=== PATIENT | female | born 1960 | race Caucasian/White ===

== ENCOUNTER 2019-07-03 08:02 | Outpatient (CLI) | payer OTHER ==
[2019-07-03 12:11] LABS: BASOPHILS # (AUTO) 0.1 10^3/uL (0.0-0.1); BASOPHILS % (AUTO) 1.2 %; EOSINOPHILS # (AUTO) 0.2 10^3/uL (0.0-0.7); EOSINOPHILS % (AUTO) 3.3 %; HGB - HEMOGLOBIN 12.8 g/dL (12.0-16.0); LYMPHOCYTES # (AUTO) 2.9 10^3/uL (1.5-3.5); MEAN CORPUSCULAR HEMOGLOBIN 26.3 pg (27.0-31.0); MEAN CORPUSCULAR HGB CONC 31.2 g/dL (32.0-36.0); MEAN CORPUSCULAR VOLUME 84.4 fL (81.0-99.0); MEAN PLATELET VOLUME 10.2 fL (7.9-10.8); MONOCYTES # (AUTO) 0.5 10^3/uL (0.0-1.0); MONOCYTES % (AUTO) 8.4 %; NEUTROPHILS # (AUTO) 2.3 10^3/uL (1.5-6.6); NEUTROPHILS % (AUTO) 38.8 %; PLT - PLATELET COUNT 348 10^3/uL (130-450); RED BLOOD COUNT 4.86 10^6/uL (4.20-5.40); RED CELL DISTRIBUTION WIDTH 13.5 % (12.0-15.0)
[2019-07-03 12:21] LABS: ALBUMIN 4.3 g/dL (3.2-5.5); ALBUMIN/GLOBULIN RATIO 1.4 (1.0-2.2); ALKALINE PHOSPHATASE 33 IU/L (42-121); ALT ALANINE AMINOTRANSFERASE 49 IU/L (10-60); AST ASPARTATE AMINOTRANSFERASE 28 IU/L (10-42); BILIRUBIN,TOTAL 0.5 mg/dL (0.2-1.0); BUN - BLOOD UREA NITROGEN 23 mg/dL (6-20); CALCIUM 9.9 mg/dL (8.5-10.3); CARBON DIOXIDE - CO2 29 mmol/L (21-32); CHLORIDE 101 mmol/L (101-111); CHOL/HDL RATIO 4.2 (<4.4); CHOLESTEROL 233 mg/dL; CREATININE 0.6 mg/dL (0.4-1.0); GLUCOSE 99 mg/dL (70-100); HDL CHOLESTEROL 56 mg/dL; LDL CHOLESTEROL,CALCULATED 151 mg/dL; LDL/HDL RATIO 2.7 (<4.4); SODIUM 136 mmol/L (135-145); TOTAL PROTEIN 7.4 g/dL (6.7-8.2); VLDL CHOLESTEROL 26 mg/dL
== END 2019-07-03 23:59 | disposition home or self-care (01) ==
LOC: LAB.N 08:02
PROVIDERS: ATTEND Family Medicine
DX: I10 Essential (primary) hypertension (principal); E78.5 Hyperlipidemia, unspecified; E03.9 Hypothyroidism, unspecified
CPT/HCPCS: 36415; 80053; 80061; 83721; 84443; 85025

== ENCOUNTER 2020-05-20 08:00 | Outpatient (CLI) | payer OTHER ==
[2020-05-20 13:37] LABS: BASOPHILS # (AUTO) 0.1 10^3/uL (0.0-0.1); BASOPHILS % (AUTO) 1.1 %; EOSINOPHILS # (AUTO) 0.2 10^3/uL (0.0-0.7); EOSINOPHILS % (AUTO) 2.9 %; HGB - HEMOGLOBIN 13.3 g/dL (12.0-16.0); LYMPHOCYTES # (AUTO) 3.7 10^3/uL (1.5-3.5); LYMPHOCYTES % (AUTO) 59.4 %; MEAN CORPUSCULAR HEMOGLOBIN 27.3 pg (27.0-31.0); MEAN CORPUSCULAR HGB CONC 31.3 g/dL (32.0-36.0); MEAN CORPUSCULAR VOLUME 87.1 fL (81.0-99.0); MEAN PLATELET VOLUME 10.3 fL (7.9-10.8); MONOCYTES # (AUTO) 0.5 10^3/uL (0.0-1.0); MONOCYTES % (AUTO) 7.6 %; NEUTROPHILS # (AUTO) 1.8 10^3/uL (1.5-6.6); NEUTROPHILS % (AUTO) 28.8 %; PLT - PLATELET COUNT 352 10^3/uL (130-450); RED BLOOD COUNT 4.88 10^6/uL (4.20-5.40); RED CELL DISTRIBUTION WIDTH 13.5 % (12.0-15.0); WHITE BLOOD COUNT 6.2 x10^3/uL (4.8-10.8)
[2020-05-20 14:24] LABS: ALBUMIN 4.7 g/dL (3.2-5.5); ALBUMIN/GLOBULIN RATIO 1.7 (1.0-2.2); ALKALINE PHOSPHATASE 46 IU/L (42-121); ALT ALANINE AMINOTRANSFERASE 42 IU/L (10-60); AST ASPARTATE AMINOTRANSFERASE 25 IU/L (10-42); BILIRUBIN,TOTAL 0.6 mg/dL (0.2-1.0); BUN - BLOOD UREA NITROGEN 22 mg/dL (6-20); CALCIUM 10.6 mg/dL (8.5-10.3); CARBON DIOXIDE - CO2 28 mmol/L (21-32); CHLORIDE 99 mmol/L (101-111); CHOLESTEROL 255 mg/dL; CREATININE 0.6 mg/dL (0.4-1.0); GLUCOSE 92 mg/dL (70-100); HDL CHOLESTEROL 64 mg/dL; LDL CHOLESTEROL,CALCULATED 166 mg/dL; LDL/HDL RATIO 2.6 (<4.4); TOTAL PROTEIN 7.5 g/dL (6.7-8.2); VLDL CHOLESTEROL 25 mg/dL
== END 2020-05-20 23:59 ==
LOC: LAB.WCP 08:00
PROVIDERS: ATTEND Internal Medicine
DX: E87.6 Hypokalemia (principal); E78.5 Hyperlipidemia, unspecified; E03.9 Hypothyroidism, unspecified
CPT/HCPCS: 36415; 80053; 80061; 83721; 84443; 85025

== ENCOUNTER 2020-08-25 08:00 | Outpatient (CLI) | payer OTHER ==
[2020-08-25 17:02] LABS: FECAL OCCULT BLOOD (FIT) NEGATIVE (NEGATIVE)
== END 2020-08-25 23:59 | disposition home or self-care (01) ==
LOC: LAB.R 08:00
PROVIDERS: ATTEND Internal Medicine
DX: Z12.11 Encounter for screening for malignant neoplasm of colon (principal)
CPT/HCPCS: 82274

== ENCOUNTER 2021-01-04 08:12 | Outpatient (CLI) | payer OTHER ==
--- NOTE | 2021-01-05 15:04 | Mammography Report ---
BILATERAL DIGITAL SCREENING MAMMOGRAM 3D/2D: 01/04/2021 CLINICAL: Baseline exam. Routine screening. No prior exams were available for comparison. There are scattered fibroglandular elements in both br easts. No significant masses, calcifications, or other findings are seen in either breast. IMPRESSION: NEGATIVE There is no mammographic evidence of malignancy. A 1 year screening mammogram is recommended. This exam was interpreted at Station ID: [id number]. NOTE: For mammograms, a report in lay terms will be sent to the patient. Approximately 15% of breast malignancies will not be visualized mammographically. In the management of a palpable breast mass, a negative mammogram must not discourage biopsy of a clinically suspicious lesion. Electronically Signed By: Natalio Garcia M.D., jr/darren:01/04/2021 08:54:16 ACR BI-RADS Category 1: Negative 3341F PARENCHYMAL PATTERN: (A) - The breast(s) demonstrate(s) scattered fibroglandular densities. BI-RADS CATEGORY: (1) - 1 RECOMMENDATION: (ANNUAL) - Recommend routine annual screening mammography. [id number] 1 year screening LATERALITY: (B)
== END 2021-01-04 08:13 | disposition home or self-care (01) ==
LOC: DI 08:12
DX: Z12.31 Encounter for screening mammogram for malignant neoplasm of breast (principal)

== ENCOUNTER 2021-05-27 14:43 | Outpatient (CLI) | payer OTHER ==
--- NOTE | 2021-05-27 16:00 | Ultrasound Report ---
PROCEDURE: Pelvic w/Transvaginal INDICATIONS: ENDOMETRIAL POLYP TECHNIQUE: Real-time scanning was performed of the pelvic organs, with image documentation. Additional endovagi nal scanning was necessary due to incomplete visualization of the adnexal and endometrial structures by transabdominal scanning. COMPARISON: None. FINDINGS: The uterine body measures 3.8 x 6.0 x 6.1 cm. The endometrium is thickened measuring 2 cm in double l andre thickness. Endometrial echogenicity is markedly heterogenous. There is a large hypoechoic tortuo us/serpentine vessel in the posterior aspect of the endometrial stripe. There is also a cystic lesion in the posterior endometrium measuring approximately 7 mm. Right and left ovaries are normal in size. No ovarian or adnexal mass. IMPRESSION: Markedly thickened endometrium with heterogenous endometrial echogenicity/echotexture. This along wit h a hypertrophied endometrial vessel and an endometrial cyst measuring 7 mm raise concern for endomet rial carcinoma. Recommend hysteroscopy and/or endometrial biopsy. Reviewed by: Natalio Garcia MD on 05/27/2021 3:59 PM PST Approved by: Natalio Garcia MD on 05/27/2021 3:59 PM PST Station ID: [id number]
== END 2021-05-27 14:44 | disposition home or self-care (01) ==
LOC: DI 14:43
PROVIDERS: ATTEND Obstetrics & Gynecology
DX: N85.00 Endometrial hyperplasia, unspecified (principal); N85.8 Other specified noninflammatory disorders of uterus

== ENCOUNTER 2021-06-06 08:40 | Outpatient (CLI) | payer OTHER ==
[2021-06-06 09:06] LABS: BASOPHILS # (AUTO) 0.1 10^3/uL (0.0-0.1); BASOPHILS % (AUTO) 1.3 %; EOSINOPHILS # (AUTO) 0.2 10^3/uL (0.0-0.7); EOSINOPHILS % (AUTO) 3.9 %; HCT - HEMATOCRIT 41.7 % (37.0-47.0); HGB - HEMOGLOBIN 13.5 g/dL (12.0-16.0); LYMPHOCYTES # (AUTO) 2.7 10^3/uL (1.5-3.5); LYMPHOCYTES % (AUTO) 50.6 %; MEAN CORPUSCULAR HEMOGLOBIN 27.4 pg (27.0-31.0); MEAN CORPUSCULAR HGB CONC 32.4 g/dL (32.0-36.0); MEAN CORPUSCULAR VOLUME 84.8 fL (81.0-99.0); MEAN PLATELET VOLUME 9.4 fL (7.9-10.8); MONOCYTES # (AUTO) 0.5 10^3/uL (0.0-1.0); NEUTROPHILS # (AUTO) 1.9 10^3/uL (1.5-6.6); PLT - PLATELET COUNT 344 10^3/uL (130-450); RED BLOOD COUNT 4.92 10^6/uL (4.20-5.40); RED CELL DISTRIBUTION WIDTH 13.2 % (12.0-15.0); WHITE BLOOD COUNT 5.4 x10^3/uL (4.8-10.8)
== END 2021-06-06 08:41 | disposition home or self-care (01) ==
LOC: LAB 08:40
PROVIDERS: ATTEND Obstetrics & Gynecology
DX: Z01.818 Encounter for other preprocedural examination (principal); N84.0 Polyp of corpus uteri
CPT/HCPCS: 36415; 85025; 86850; 86900; 86901; 93005

== ENCOUNTER 2021-06-07 09:02 | Day surgery (SDC) | payer OTHER ==
[~2021-06-07 09:02] MED LIST: ACETAMINOPHEN 500 MG TABLET PO ONE; CELECOXIB 100 MG CAPSULE PO ONE; GABAPENTIN 400 MG CAPSULE ONE
[2021-06-07] MEDS ORDERED: fentaNYL 100 MCG/2 ML VIAL ONE (09:22)
[2021-06-07] MEDS ORDERED: LIDOCAINE-MPF 2% 5 ML VIAL ONE (09:23)
[2021-06-07] MEDS ORDERED: PROPOFOL 200 MG/20 ML VIAL IVP ONE (09:23)
[2021-06-07] MEDS ORDERED: DEXAMETHASONE 4 MG/ML VIAL ONE (09:23)
[2021-06-07] MEDS ORDERED: ONDANSETRON 4 MG/2 ML VIAL ONE (09:23)
[2021-06-07] MEDS ORDERED: LACTATED RINGERS 1,000 ML IV ONE (09:32)
--- NOTE | 2021-06-07 09:41 | ANESTHESIA ---
Pre-Anesthesia VS, & Labs - Diagnosis endometrial polyp - Procedure myosure hysteroscopy, d&C Vital Signs: Temp Pulse Resp BP Pulse Ox 36.8 C 83 17 134/86 H 100 06/07/21 09:19 06/07/21 09:19 06/07/21 09:19 06/07/21 09:19 06/07/21 09:19 Height: 5 ft 5 in Weight (kg): 70 kg Body Mass Index: 25.7 BMI Classification: Overweight - NPO >8 hours - Is Patient ?: No - Lab Results Current Lab Results: Laboratory Tests 06/07/21 09:31: POC Whole Bld Glucose 110 H Lab results reviewed: Yes Home Medications and Allergies Home Medications: Ambulatory Orders Alpha Lipoic Acid 600 mg PO BID 06/03/21 Ascorbic Acid [Vitamin C] 1,000 mg PO DAILY 06/03/21 Cholecalciferol [Vitamin D3] 25 mcg PO DAILY 06/03/21 Fenofibrate Nanocrystallized [Tricor] 145 mg PO QPM 06/03/21 Iodine Complex 12.5 mg PO DAILY 06/03/21 Lisinopril/Hydrochlorothiazide [Zestoretic 20-25 mg Tablet] 1 each PO DAILY 06/03/21 Jive Developer Thyroid 45 mg PO BID 06/03/21 Selenomethionine 200 mg PO DAILY 06/03/21 Trace Mineral 1 tab PO DAILY 06/03/21 Turmeric Root Extract [Turmeric] 1,000 mg PO QPM 06/03/21 hydroCHLOROthiazide [Hydrodiuril] 25 mg PO DAILY 06/03/21 Alpha Lipoic Acid 600 mg PO BID 06/03/21 Ascorbic Acid [Vitamin C] 1,000 mg PO DAILY 06/03/21 Cholecalciferol [Vitamin D3] 25 mcg PO DAILY 06/03/21 Fenofibrate Nanocrystallized [Tricor] 145 mg PO QPM 06/03/21 Iodine Complex 12.5 mg PO DAILY 06/03/21 Lisinopril/Hydrochlorothiazide [Zestoretic 20-25 mg Tablet] 1 each PO DAILY 06/03/21 Jive Developer Thyroid 45 mg PO BID 06/03/21 Selenomethionine 200 mg PO DAILY 06/03/21 Trace Mineral 1 tab PO DAILY 06/03/21 Turmeric Root Extract [Turmeric] 1,000 mg PO QPM 06/03/21 hydroCHLOROthiazide [Hydrodiuril] 25 mg PO DAILY 06/03/21 Allergies/Adverse Reactions: Allergies Allergy/AdvReac Type Severity Reaction Status Date / Time erythromycin base Allergy Anaphylaxis Verified 06/03/21 11:51 [id number] Reductase AdvReac Unknown Verified 06/07/21 09:30 Inhibitor Anes History & Medical History - Anesthetic History Anesthesia Complications: reports: No previous complications Family history of Anesthesia Complications: Denies Family history of Malignant Hyperthermia: Denies - Medical History Cardiovascular: reports: Hypertension, High cholesterol Pulmonary: reports: None Gastrointestinal: reports: None Urinary: reports: Kidney stones Musculoskeletal: reports: None Endocrine/Autoimmune: reports: HyPOthyroidism Skin: reports: None - Surgical History General: reports: Colonoscopy, Other Urologic: reports: Ureterolithotomy (stones) Exam General: Alert, Oriented x3, Cooperative, No acute distress Dental: WNL Mouth Openin Fingerbreadth Neck Mobility: Normal Mallampati classification: II Plan Anesthesia Type: General Consent for Procedure(s) Verified and Reviewed: Yes Code Status: Attempt Resuscitation ASA classification: 2-Mild systemic disease Is this case an emergency?: No
[2021-06-07] MEDS ORDERED: SCOPOLAMINE PATCH TOP ONE (09:44)
[2021-06-07] MEDS ORDERED: BUPIVACAINE 0.5% PF 10 ML VIAL ONE (09:49)
[2021-06-07] MEDS ORDERED: LIDOCAINE 2%-EPI 1:100000 20 ML MDV ONE (09:49)
[2021-06-07] MEDS ORDERED: LIDOCAINE 2%-EPI 1:100000 20 ML MDV SUBQ ONE ×2 (10:23)
[2021-06-07] MEDS ORDERED: BUPIVACAINE 0.5% PF 10 ML VIAL IM ONE ×2 (10:23)
[2021-06-07] MEDS ORDERED: ATROPINE ABBOJECT 1 MG/10 ML SYRINGE IVP PRN (10:54)
[2021-06-07] MEDS ORDERED: MORPHINE 2 MG/ML CARPUJECT IVP PRN (10:54)
[2021-06-07] MEDS ORDERED: fentaNYL 100 MCG/2 ML VIAL IVP PRN (10:54)
[2021-06-07] MEDS ORDERED: HYDROmorphone 0.5 MG/0.5 ML SYRINGE IVP PRN (10:54)
[2021-06-07] MEDS ORDERED: ONDANSETRON 4 MG/2 ML VIAL IVP PRN (10:54)
[2021-06-07] MEDS ORDERED: NALOXONE 0.4 MG/ML VIAL IVP PRN (10:54)
--- NOTE | 2021-06-07 10:58 | OPERATIVE REPORT ---
Operative Report - General Planned Procedure: Hystersocopy with myosure polypectomy Pre-Op Diagnosis: Uterine polyp Procedure Performed: Hysteroscopy with myosure polypectomy Post Op Diagnosis: Uterine polyp, cervical polyp - Procedure Note Primary Surgeon: Clovis Servin MD Anesthesia Provider: Lewis Willard CRNA Anesthesia Technique: General ET tube Pathology: Endometrial polyp IV Fluids (mL): 900 Estimated Blood Loss (mL): 10 Complications: None - Other Other Information/Narrative: Patient is a 61-year-old postmenopausal female who presented after a endometrial polyp was removed in clinic. Subsequent ultrasound showed a 2 cm thickened endometrial echo with a large vessel in the middle of the stripe. We discussed that usually patients present with vaginal bleeding, but with an incidental endometrial echo greater than 2 cm, there could be concern for malignancy. She was counseled on the risks and benefits of hysteroscopic polypectomy and agreed to proceed with procedure. Prior to the procedure, she used 200 mcg of misoprostol vaginally the night before the procedure. Patient was taken to the procedure room and placed in dorsal lithotomy position. Polacca speculum was palced in the vagina and the cervix was visualized and cleansed with chlorhexidine. The anterior lip the cervix was grasped with a single-tooth tenaculum. The cervix was noted to be nonstenotic and allowed the easy passage of dilators. Hysteroscope was then used to hydrodilate using normal saline distention media. Hysteroscope was advanced without difficulty using hydrodistention. Cervical canal was noted to have a small cervical polyp which was removed with the MyoSure device. Upon entry into the internal cervical os there was noted to be a large uterine polyp taking up essentially entire uterine cavity within the uterus. The MyoSure device was used to dissect through the polyp until normal architecture was achieved. She then was noted to have a small polyp at the posterior aspect of the uterus which was biopsied with the myosure as well. Right tubal ostia was then noted. The left cornea was identified, but due to positioning, the ostia was not able to be seen. Hysteroscope was then removed. Tenaculum was then removed from the cervix noted to be hemostatic. All instruments removed from the vagina. Deficit of 1200 mL of saline was noted.
[2021-06-07] MEDS ORDERED: LACTATED RINGERS 1,000 ML IV SCH (11:00)
[2021-06-07] MEDS ORDERED: LACTATED RINGERS 100 ML IV ONE (11:03)
[2021-06-07 12:01] VITALS: BP 116/77
--- NOTE | 2021-06-07 12:19 | ANESTHESIA POST OP EVALUATION ---
Anesthesia Post Eval - Post Anesthesia Eval Vitals: Last Vital Signs Temp 36.4 C L 06/07/21 11:38 Pulse 65 06/07/21 11:59 Resp 12 06/07/21 11:59 BP 116/77 06/07/21 11:59 Pulse Ox 100 06/07/21 11:59 CV Function Including HR & BP: Stable Pain Control: Satisfactory Nausea & Vomiting: Negative Mental Status: Baseline Respiratory Status: Airway Patent Hydration Status: Satisfactory Anesthesia Complications: None
== END 2021-06-07 09:03 | disposition home or self-care (01) ==
LOC: SDS 09:02
PROVIDERS: ATTEND Obstetrics & Gynecology
PROC: 0UB98ZX Excision of Uterus, Via Natural or Artificial Opening Endoscopic, Diagnostic (ICD-10-PCS; 2021-06-07)
PROC: 0UBC8ZX Excision of Cervix, Via Natural or Artificial Opening Endoscopic, Diagnostic (ICD-10-PCS; principal; 2021-06-07 10:00)
DX: N84.0 Polyp of corpus uteri (principal); N84.1 Polyp of cervix uteri; R93.89 Abnormal findings on diagnostic imaging of other specified body structures; I10 Essential (primary) hypertension
CPT/HCPCS: 58558; A9270; J3490; J7120

== ENCOUNTER 2021-07-02 19:07 | Emergency (ER) | payer OTHER ==
[2021-07-02 19:21] VITALS: BP 137/70
[2021-07-02] MEDS ORDERED: BACITRACIN ZINC OINT 1 PACKET TOP STA (19:31)
--- NOTE | 2021-07-02 19:34 | ED Physician Documentation ---
History of Present Illness - Stated complaint Stated Complaint: FALL, HEAD INJURY - Chief complaint Chief Complaint: Laceration - Additonal information Additional information: Very pleasant 61-year-old female presents emergency department for evaluation of a hematoma above her left eye as well as a left knee contusion. She reports doing yard work and was rolling a green waste bin when it began to fall. She fell forward with it striking her head on the edge of the lid and her knee on the ground. She is not anticoagulated. There was no loss of consciousness. She does endorse a mild headache. She presents with a bruising above her left eye and ecchymosis on her left knee. Normal gait. Review of Systems Constitutional: reports: Reviewed and negative Eyes: denies: Loss of vision, Photophobia Ears: denies: Loss of hearing, Drainage/discharge Nose: denies: Rhinorrhea / runny nose, Epistaxis Throat: reports: Dental pain / toothache Cardiac: reports: Reviewed and negative Respiratory: reports: Reviewed and negative GI: reports: Reviewed and negative : reports: Reviewed and negative Skin: reports: Abrasion (s) Musculoskeletal: reports: Joint pain (Left knee) Neurologic: reports: Reviewed and negative PD PAST MEDICAL HISTORY - Past Medical History Cardiovascular: Hypertension, High cholesterol Respiratory: None Endocrine/Autoimmune: HyPOthyroidism GI: None : Kidney stones HEENT: Chronic vision loss Psych: None Musculoskeletal: None Derm: None - Past Surgical History General: Colonoscopy, Other - Present Medications Home Medications: Ambulatory Orders Medication Instructions Recorded Confirmed Alpha Lipoic Acid 600 mg PO BID 06/03/21 06/03/21 Ascorbic Acid [Vitamin C] 1,000 mg PO DAILY 06/03/21 06/03/21 Cholecalciferol [Vitamin D3] 25 mcg PO DAILY 06/03/21 06/03/21 Fenofibrate Nanocrystallized 145 mg PO QPM 06/03/21 06/03/21 [Tricor] Iodine Complex 12.5 mg PO DAILY 06/03/21 06/03/21 Lisinopril/Hydrochlorothiazide 1 each PO DAILY 06/03/21 06/07/21 [Zestoretic 20-25 mg Tablet] Food Packer Thyroid 45 mg PO BID 06/03/21 06/03/21 Selenomethionine 200 mg PO DAILY 06/03/21 06/03/21 Trace Mineral 1 tab PO DAILY 06/03/21 06/03/21 Turmeric Root Extract [Turmeric] 1,000 mg PO QPM 06/03/21 06/03/21 hydroCHLOROthiazide [Hydrodiuril] 25 mg PO DAILY 06/03/21 06/07/21 - Allergies Allergies/Adverse Reactions: Allergies Allergy/AdvReac Type Severity Reaction Status Date / Time erythromycin base Allergy Anaphylaxis Verified 07/02/21 19:21 [id number] Reductase AdvReac Unknown Verified 07/02/21 19:21 Inhibitor - Social History Does the pt smoke?: No Smoking Status: Never smoker Does the pt have substance abuse?: No - Immunizations Immunizations are current?: Yes - POLST Patient has POLST: No PD ED PE EXPANDED - General General: Alert, No acute distress, Well developed/nourished - HEENT HEENT: PERRL, EOMI, Ears normal, Other (Negative raccoon eyes. Negative crowder sign. No hemotympanum. No trismus.) - Eyes Eyes: PERRL, EOMI, Other (Contusion above the left eyebrow.) - Neck Neck: Supple w/out meningeal sx, Soft tissue TTP, Other (Full range of motion in all planes. Motor strength 5 of 5 at shoulders elbows and wrists. No paresthesia. No increased pain with axial loading). No: Adenopathy, Bony TTP - Cardiac Cardiac: Regular Rate - Derm Derm: Normal color, Warm and dry, Abrasion (s) (Above the left eye and left knee) - Extremities Extremities: Left knee (Normal gait. Normal flexion extension of the knee. No pain or laxity with stress testing. She does have a superficial abrasion just above the patella.) - Neuro Neuro: Alert and Oriented X 3, CNII-XII intact, Normal gait, Normal speech - GCS Eye Opening: Spontaneous Motor: Obeys Commands Verbal: Oriented Total: 15 Results - Vitals Vitals: Vital Signs - 24 hr 07/02/21 19:16 Temperature 36.6 C Heart Rate 89 Respiratory 16 Rate Blood Pressure 137/70 H O2 Saturation 100 Oxygen O2 Source Room air PD MEDICAL DECISION MAKING - ED course Complexity details: reviewed results, re-evaluated patient, considered differential, d/w patient ED course: This is a very well-appearing a pleasant 61-year-old female that presents to the emergency department after a fall at home while wheeling a garden can. She fell forward striking her head on the lid and having an abrasion on her knee. No loss of consciousness. She is not anticoagulated. Normal neuro exam. Low risk mechanism. No findings to suggest basilar skull fracture. Will defer advanced CT imaging today. She does have an abrasion above her eye that is superficial. Not amenable to primary closure. Will recommend bacitracin routine wound care. Also has an abrasion above her left patella with no stress test laxity. Normal gait. Very low suspicion for occult fracture. Defer imaging as well. Routine wound care of the abrasions and emergent return precautions discussed. Departure - Departure Disposition: Home, Self Care Clinical Impression: Fall from ground level, Abrasion, left knee, initial encounter Traumatic hematoma of forehead Qualifiers: Encounter type: initial encounter Qualified Code(s): S00.83XA - Contusion of other part of head, initial encounter Condition: Stable Record reviewed to determine appropriate education?: Yes Instructions: ED Hematoma Comments: Gale I am so sorry that you had your fall today. You do have a hematoma or bruise above your left eyebrow as well as one on your left patella. These are superficial and should resolve with time. Placing ice over them will help reduce swelling and pain. Gently washing them with warm soap and water and then applying any antibiotic ointment such as bacitracin and Neosporin should prevent any infections. As we discussed at the bedside, I have very little suspicion for traumatic brain injury that could include bruising or bleeding of the brain or skull fracture. Over the next 24 to 48 hours if you develop any sudden severe headache, have 2 or more episodes of uncontrolled vomiting, slurred speech, droopy face or weakness in your arms or legs then please return immediately to the emergency department.
== END 2021-07-02 19:43 | disposition home or self-care (01) ==
LOC: ED 19:07
DX: S00.83XA Contusion of other part of head, initial encounter (principal); S80.212A Abrasion, left knee, initial encounter; W01.198A Fall on same level from slipping, tripping and stumbling with subsequent striking against other object, initial encounter; Y93.H2 Activity, gardening and landscaping
CPT/HCPCS: 99282; A9270

== ENCOUNTER 2021-07-09 11:07 | Outpatient (CLI) | payer OTHER ==
--- NOTE | 2021-07-09 11:42 | XRAY Report ---
PROCEDURE: Knee 4 View LT INDICATIONS: LEFT KNEE PAIN TECHNIQUE: 3 views of the left knee(s) were acquired. COMPARISON: None. FINDINGS: Bones: No fractures or dislocations. No suspicious bony lesions. There is mild medial and lateral femorotibial joint space narrowing, with associated degenerative change with subchondral sclerosis an d osteophyte formation. Soft tissues: No joint effusion. No suspicious soft tissue calcifications. IMPRESSION: No acute abnormality is seen by plain film. Degenerative changes are seen. If it would be helpful for clinical management decision making, please consider a dedicated, schedule d knee MRI for further evaluation (assuming that there is no contraindication). Reviewed by: Zeb Kendall MD on 07/09/2021 10:41 AM RUBÉN Approved by: Zeb Kendall MD on 07/09/2021 10:41 AM RUBÉN Station ID: [id number]
== END 2021-07-09 11:08 | disposition home or self-care (01) ==
LOC: DI 11:07
PROVIDERS: ATTEND Internal Medicine
DX: M17.12 Unilateral primary osteoarthritis, left knee (principal)

== ENCOUNTER 2021-07-10 07:27 | Outpatient (CLI) | payer OTHER ==
[2021-07-10 07:48] LABS: BASOPHILS # (AUTO) 0.1 10^3/uL (0.0-0.1); BASOPHILS % (AUTO) 1.3 %; EOSINOPHILS # (AUTO) 0.2 10^3/uL (0.0-0.7); EOSINOPHILS % (AUTO) 3.4 %; HCT - HEMATOCRIT 41.4 % (37.0-47.0); HGB - HEMOGLOBIN 13.5 g/dL (12.0-16.0); LYMPHOCYTES # (AUTO) 2.7 10^3/uL (1.5-3.5); MEAN CORPUSCULAR HGB CONC 32.6 g/dL (32.0-36.0); MEAN CORPUSCULAR VOLUME 85.7 fL (81.0-99.0); MONOCYTES # (AUTO) 0.4 10^3/uL (0.0-1.0); MONOCYTES % (AUTO) 7.9 %; NEUTROPHILS # (AUTO) 2.2 10^3/uL (1.5-6.6); NEUTROPHILS % (AUTO) 39.2 %; PLT - PLATELET COUNT 328 10^3/uL (130-450); RED BLOOD COUNT 4.83 10^6/uL (4.20-5.40); RED CELL DISTRIBUTION WIDTH 13.5 % (12.0-15.0); WHITE BLOOD COUNT 5.6 x10^3/uL (4.8-10.8)
[2021-07-10 08:09] LABS: ALBUMIN 4.6 g/dL (3.2-5.5); ALBUMIN/GLOBULIN RATIO 1.5 (1.0-2.2); ALKALINE PHOSPHATASE 49 IU/L (42-121); ALT ALANINE AMINOTRANSFERASE 28 IU/L (10-60); AST ASPARTATE AMINOTRANSFERASE 20 IU/L (10-42); BILIRUBIN,TOTAL 0.5 mg/dL (0.2-1.0); BUN - BLOOD UREA NITROGEN 27 mg/dL (6-20); CALCIUM 10.3 mg/dL (8.5-10.3); CARBON DIOXIDE - CO2 27 mmol/L (21-32); CHLORIDE 104 mmol/L (101-111); CHOL/HDL RATIO 4.1 (<4.4); CHOLESTEROL 255 mg/dL; CREATININE 0.6 mg/dL (0.4-1.0); GFR - MDRD 102 (>89); GLUCOSE 108 mg/dL (70-100); HDL CHOLESTEROL 62 mg/dL; LDL CHOLESTEROL,CALCULATED 168 mg/dL; LDL/HDL RATIO 2.7 (<4.4); POTASSIUM 4.3 mmol/L (3.5-5.0); SODIUM 142 mmol/L (135-145); TOTAL PROTEIN 7.7 g/dL (6.7-8.2); TRIGLYCERIDES 127 mg/dL; VLDL CHOLESTEROL 25 mg/dL
[2021-07-10 08:20] LABS: THYROID STIMULATING HORMONE 0.34 uIU/mL (0.34-5.60)
[2021-07-10 10:11] LABS: ESTIMATED AVERAGE GLUCOSE 117 mg/dL (70-100); HEMOGLOBIN A1c% 5.7 % (4.27-6.07)
== END 2021-07-10 07:28 | disposition home or self-care (01) ==
LOC: LAB 07:27
PROVIDERS: ATTEND Internal Medicine
DX: I10 Essential (primary) hypertension (principal); E78.5 Hyperlipidemia, unspecified; R73.01 Impaired fasting glucose; E03.9 Hypothyroidism, unspecified
CPT/HCPCS: 36415; 80053; 80061; 83036; 83721; 84443; 85025

== ENCOUNTER 2021-07-26 08:08 | Outpatient (CLI) | payer OTHER ==
--- NOTE | 2021-07-26 17:05 | XRAY Report ---
PROCEDURE: Knee 3 View LT INDICATIONS: KNEE PAIN TECHNIQUE: 3 views of the left knee(s) were acquired. COMPARISON: None. FINDINGS: Bones: No fractures or dislocations. No suspicious bony lesions. Small tricompartment osteophytes a nd early medial compartment joint space loss. Soft tissues: No joint effusion. No suspicious soft tissue calcifications. IMPRESSION: Mild degenerative arthritis of the left knee. Reviewed by: Eugenio Wisdom MD on 07/26/2021 5:03 PM PDT Approved by: Eugenio Wisdom MD on 07/26/2021 5:03 PM PDT Station ID: [id number]
== END 2021-07-26 23:59 | disposition home or self-care (01) ==
LOC: DI.WOS 08:08
PROVIDERS: ATTEND Orthopaedic Surgery
DX: M17.12 Unilateral primary osteoarthritis, left knee (principal)

== ENCOUNTER 2021-10-06 07:45 | Outpatient (CLI) | payer OTHER ==
[2021-10-06 08:16] LABS: ALBUMIN 4.4 g/dL (3.2-5.5); ALBUMIN/GLOBULIN RATIO 1.4 (1.0-2.2); ALKALINE PHOSPHATASE 63 IU/L (42-121); ALT ALANINE AMINOTRANSFERASE 27 IU/L (10-60); AST ASPARTATE AMINOTRANSFERASE 17 IU/L (10-42); BILIRUBIN,TOTAL 0.3 mg/dL (0.2-1.0); BUN - BLOOD UREA NITROGEN 20 mg/dL (6-20); CARBON DIOXIDE - CO2 29 mmol/L (21-32); CHLORIDE 104 mmol/L (101-111); CHOL/HDL RATIO 3.4 (<4.4); CHOLESTEROL 230 mg/dL; CREATININE 0.6 mg/dL (0.4-1.0); GFR - MDRD 102 (>89); GLUCOSE 99 mg/dL (70-100); HDL CHOLESTEROL 67 mg/dL; LDL CHOLESTEROL,CALCULATED 135 mg/dL; SODIUM 140 mmol/L (135-145); TOTAL PROTEIN 7.6 g/dL (6.7-8.2); TRIGLYCERIDES 140 mg/dL; VLDL CHOLESTEROL 28 mg/dL
[2021-10-06 08:27] LABS: THYROID STIMULATING HORMONE 2.67 uIU/mL (0.34-5.60)
[2021-10-06 10:31] LABS: ESTIMATED AVERAGE GLUCOSE 117 mg/dL (70-100); HEMOGLOBIN A1c% 5.7 % (4.27-6.07)
== END 2021-10-06 07:46 | disposition home or self-care (01) ==
LOC: LAB 07:45
PROVIDERS: ATTEND Internal Medicine
DX: E78.5 Hyperlipidemia, unspecified (principal); E53.8 Deficiency of other specified B group vitamins; R73.01 Impaired fasting glucose; E03.9 Hypothyroidism, unspecified
CPT/HCPCS: 36415; 80053; 80061; 82607; 83036; 83721; 84443

== ENCOUNTER 2021-11-02 08:45 | Outpatient (CLI) | payer OTHER ==
--- NOTE | 2021-11-02 10:08 | MRI Report ---
PROCEDURE: Brain W/O INDICATIONS: HEADACHE TECHNIQUE: Noncontrast axial T1 spin echo, axial T2 fast spin echo, sagittal and axial FLAIR, coronal T2 fast sp in echo, axial gradient echo, axial diffusion and ADC through the brain. COMPARISON: None. FINDINGS: Image quality: Excellent. CSF Spaces: Basal cisterns are patent. No extra-axial fluid collections. Ventricles are normal in size and shape. Brain: Multiple foci of T2-weighted hyperintensity can be seen within the periventricular and deep w bing matter, including within the juxtacortical white matter. There is mild involvement of the corpus callosum. No definite brainstem or cerebellar infarction can be seen. No intracranial masses or hemorrhage. Guardado/white matter interface is normal. Brainstem appears norm al. Diffusion-weighted images demonstrate no acute ischemic insult. No chronic ischemic insults. N ormal intravascular flow voids are present. Skull and face: Calvarium has normal marrow signal. Orbits appear normal. Sinuses: Sinuses and mastoids are clear. IMPRESSION: Multiple foci of T2-weighted hyperintensity can be seen within the white matter. Although nonspecific , differential diagnosis would include sequelae of migraine headaches in this patient with a given hi story of headache. However, please consider a demyelinating process, including multiple sclerosis. Re latively prominent chronic small vessel ischemic change for patient age is also possible, yet conside red to be less likely. No masses or mass effect can be seen. No brain edema or hydrocephalus. No Chiari I malformation. Reviewed by: Zeb Kendall MD on 11/02/2021 9:07 AM RUBÉN Approved by: Zeb Kendall MD on 11/02/2021 9:07 AM RUBÉN Station ID: [id number]
== END 2021-11-02 08:46 | disposition home or self-care (01) ==
LOC: DI 08:45
PROVIDERS: ATTEND Physician Assistant
DX: G44.89 Other headache syndrome (principal)

== ENCOUNTER 2023-02-01 16:22 | Outpatient (CLI) | payer OTHER ==
[2023-02-01 18:34] LABS: FECAL OCCULT BLOOD (FIT) NEGATIVE (NEGATIVE)
== END 2023-02-01 16:23 | disposition home or self-care (01) ==
LOC: LAB.R 16:22
PROVIDERS: ATTEND Internal Medicine
DX: Z12.11 Encounter for screening for malignant neoplasm of colon (principal)
CPT/HCPCS: 82274